=== PATIENT | female | born 1995 | race American Indian/Alaskan Native ===

== ENCOUNTER 2016-11-27 13:10 | Emergency (ER) | payer SELFPAY ==
--- NOTE | 2016-11-27 17:07 | Emergency Department Report ---
- General Chief Complaint: Wound/Laceration Stated Complaint: RT HAND/PINKY FINGER INJURY Time Seen by Provider: 11/27/16 16:49 Source: patient, family Mode of arrival: Ambulatory Limitations: No Limitations - History of Present Illness Initial Comments: Patient here reports that she cut her right small finger on can open her. She says she was trying to open a can and it slipped and her finger got cut. Reporting pain to her right small finger at 8 out of 10. She reports this happened at 12 PM today. No numbness or tingling to fingers. TD vaccine is not up-to-date. -: This afternoon Extremity Location: Right: Hand (right fifth digit) Place: home Patient Tetanus UTD: No Context: accidental Associated Symptoms: pain. denies: loss of feeling/numbness, suspect foreign body present, unable to move injured part, weakness followed by dizziness, nausea/vomiting, fever Treatments Prior to Arrival: bandage - Related Data Previous Rx's Medication Instructions Recorded Last Taken Type Cephalexin [Keflex] 500 mg PO Q8HR #15 cap 11/27/16 Unknown Rx Ibuprofen [Motrin] 600 mg PO Q8H PRN #15 tablet 11/27/16 Unknown Rx Allergies Allergy/AdvReac Type Severity Reaction Status Date / Time No Known Allergies Allergy Unverified 11/27/16 17:08 ED Review of Systems ROS: Stated complaint: RT HAND/PINKY FINGER INJURY Other details as noted in HPI Comment: All other systems reviewed and negative Constitutional: denies: chills, fever Respiratory: no symptoms reported Cardiovascular: denies: chest pain, palpitations, edema, syncope Musculoskeletal: arthralgia. denies: back pain Skin: other (laceration to right small finger) Neurological: denies: headache ED Past Medical Hx - Past Medical History Previous Medical History?: No - Surgical History Past Surgical History?: No - Family History Family history: no significant - Social History Smoking Status: Never Smoker Substance Use Type: None - Medications Home Medications: Home Medications Medication Instructions Recorded Confirmed Last Taken Type Cephalexin [Keflex] 500 mg PO Q8HR #15 cap 11/27/16 Unknown Rx Ibuprofen [Motrin] 600 mg PO Q8H PRN #15 tablet 11/27/16 Unknown Rx ED Physical Exam - General Limitations: No Limitations General appearance: alert, in no apparent distress - Head Head exam: Present: atraumatic, normocephalic, normal inspection - ENT ENT exam: Present: normal exam, normal orophraynx, mucous membranes moist - Neck Neck exam: Present: normal inspection, full ROM. Absent: tenderness, meningismus, lymphadenopathy - Respiratory Respiratory exam: Present: normal lung sounds bilaterally. Absent: respiratory distress - Cardiovascular Cardiovascular Exam: Present: regular rate, normal rhythm, normal heart sounds - Extremities Exam Extremities exam: Present: normal inspection, full ROM, tenderness (right fifth digit.Phalanx), normal capillary refill, other (no neurovascular compromise. No pain with axial thumb movement. No signs of tendon damage. Patient will good color, sensation, movement in temperature to hand and fingers. She is able to move all fingers without any difficulties). Absent: joint swelling - Back Exam Back exam: Present: normal inspection - Neurological Exam Neurological exam: Present: alert, oriented X3, normal gait, reflexes normal. Absent: motor sensory deficit - Psychiatric Psychiatric exam: Present: normal affect, normal mood - Skin Skin exam: Present: warm, dry, normal color, other (laceration to right fifth digit) - Expanded Skin Exam Expanded Distribution of rash: RUE (fifth digit) Description of rash: Present: size (2 cm), tenderness. Absent: erythematous, swelling, discharge ED Course Vital Signs 11/27/16 11/27/16 14:43 17:11 Temperature 98.3 F Pulse Rate 84 97 H Respiratory 20 16 Rate Blood Pressure 112/75 Blood Pressure 112/77 [Left] O2 Sat by Pulse 100 90 Oximetry - Reevaluation(s) Reevaluation #1: 11/27/16 18:02 Patient given Cleocin 600 mg IM and Boostrix IM in the emergency room. No adverse reaction. 11/27/16 20:02 - Laceration /Wound Repair Right Medial Finger Wound Location: upper extremity (right fifth digit) Wound Length (cm): 2 Wound's Depth, Shape: superficial, irregular Wound Explored: clean Irrigated w/ Saline (ccs): 200 Anesthesia: 1% Lidocaine Volume Anesthetic (ccs): 5 Wound Debrided: moderate Wound Repaired With: sutures Suture Size/Type: 5:0 (Ethilon) Number of Sutures: 10 Layer Closure?: No Sterile Dressing Applied?: Yes ED Medical Decision Making - Radiology Data Radiology results: report reviewed X-ray for revealed no foreign body or fracture or dislocation - Medical Decision Making ED course:I Discussed with patient that her x-ray report was negative for fracture, dislocation or foreign body. Procedure note for laceration repair. She given Cleocin 600 mg and Boostrix IM and emergency room without any adverse reaction. Her pain is not at 10 status post lidocaine. Discussed the patient that she needs to return in 7-10 days to have sutures removed. Patient discharged home with prescription for Motrin and Keflex. She voiced understanding of discharge instruction. Critical care attestation.: If time is entered above; I have spent that time in minutes in the direct care of this critically ill patient, excluding procedure time. ED Disposition Clinical Impression: Arthralgia of hand, right Laceration of finger Qualifiers: Encounter type: initial encounter Qualified Code(s): S61.219A - Laceration without foreign body of unspecified finger without damage to nail, initial encounter Disposition: DISCHARGED TO HOME OR SELFCARE Is pt being admited?: No Does the pt Need Aspirin: No Condition: Stable Instructions: Finger Laceration (ED), Suture Care (ED), Arthralgia (ED) Additional Instructions: Please keep affected area clean and dry Please return to emergency department to have stitches removed in 7-10 days. Take medication as prescribed. Prescriptions: Cephalexin [Keflex] 500 mg PO Q8HR #15 cap Ibuprofen [Motrin] 600 mg PO Q8H PRN #15 tablet PRN Reason: Pain Referrals: PRIMARY CARE [Primary Care Provider] - 11/29/16 Forms: Work/School Release Form(ED)
[2016-11-27] MEDS ORDERED: XYLOCAINE 1% MPF 5 mL INFILTRATI ONE (17:10)
[2016-11-27] MEDS ORDERED: BOOSTRIX IM ONE (17:10)
[2016-11-27] MEDS ORDERED: CLEOCIN IM ONE (17:10)
[2016-11-27] MEDS ORDERED: NACL 0.9% IR ONE (17:10)
[2016-11-27 17:12] VITALS: BP 112/77
--- NOTE | 2016-11-27 18:12 | XRay Report ---
FINAL REPORT EXAM: XR FINGER(S) 2 RT HISTORY: lACERATION rt SMALL FINGER TECHNIQUE: Three views of the right 5th finger PRIORS: None. FINDINGS: No fracture is identified. The joint spaces are within normal limits. No focal bony lesion identified. No radiopaque foreign body seen. IMPRESSION: No fracture or radiopaque foreign body
[2016-11-27] MEDS ORDERED: XYLOCAINE 1% MPF 5 mL ONE (19:22)
[2016-11-27] MEDS ORDERED: NACL 0.9% 500 ML IR ONE (19:28)
== END 2016-11-27 20:07 | disposition home or self-care (01) ==
LOC: ED 13:10
DX: S61.216A Laceration without foreign body of right little finger without damage to nail, initial encounter (principal); W22.8XXA Striking against or struck by other objects, initial encounter; Y93.89 Activity, other specified; Y92.89 Other specified places as the place of occurrence of the external cause; Y99.8 Other external cause status
CPT/HCPCS: 90471; 90715; 96372

== ENCOUNTER 2016-12-03 13:59 | Emergency (ER) | payer OTHER ==
--- NOTE | 2016-12-03 18:52 | Emergency Department Report ---
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 ED Review of Systems ROS: Stated complaint: SUTURE REMOVAL ON RIGHT PINKY Other details as noted in HPI Constitutional: denies: chills, fever Eyes: denies: eye pain, eye discharge, vision change ENT: denies: ear pain, throat pain Respiratory: denies: cough, shortness of breath, wheezing Cardiovascular: denies: chest pain, palpitations Endocrine: no symptoms reported Gastrointestinal: denies: abdominal pain, nausea, diarrhea Genitourinary: denies: urgency, dysuria, discharge Musculoskeletal: denies: back pain, joint swelling, arthralgia Skin: denies: rash, lesions Neurological: denies: headache, weakness, paresthesias Psychiatric: denies: anxiety, depression Hematological/Lymphatic: denies: easy bleeding, easy bruising ED Past Medical Hx - Past Medical History Previous Medical History?: No - Surgical History Past Surgical History?: No - Social History Smoking Status: Never Smoker Substance Use Type: None - Medications Home Medications: Home Medications Medication Instructions Recorded Confirmed Last Taken Type Cephalexin [Keflex] 500 mg PO Q8HR #15 cap 11/27/16 Unknown Rx Ibuprofen [Motrin] 600 mg PO Q8H PRN #15 tablet 11/27/16 Unknown Rx Ibuprofen [Motrin] 600 mg PO Q8H PRN #20 tablet 12/03/16 Unknown Rx Neomy/Baci/Polymyx Oint [Triple 15 gm TP BID #1 oint 12/03/16 Unknown Rx Antibiotic] Suture Removal Exam - Exam General: Vital signs noted. No distress. Alert and acting appropriately. Wound: No Pathologic Erythema, No Tenderness, No Drainage, No Pus, No Wound Dehiscence Other Systems: All other systems reviewed and are unremarkable. ED Course Vital Signs 12/03/16 14:33 Temperature 98.3 F Pulse Rate 80 Respiratory 18 Rate Blood Pressure 105/73 O2 Sat by Pulse 100 Oximetry ED Recheck MDM - Differential Diagnosis Suture/Staple Removal - Medical Decision Making A/P: Suture removal 1- 2- 3- 4- 5- Critical care attestation.: If time is entered above; I have spent that time in minutes in the direct care of this critically ill patient, excluding procedure time. Critical Care Time: A/P: Suture removal right pinky finger 1-7 sutures removed with minimal to no difficulty minimal bleeding 2-triple antibiotic ointment to area no signs of infection no wound dehiscence 3-Motrin when necessary for pain 4-triple antibiotic ointment applied, Band-Aid applied to area ED Disposition Clinical Impression: Visit for suture removal Disposition: DISCHARGED TO HOME OR SELFCARE Is pt being admited?: No Does the pt Need Aspirin: No Condition: Stable Instructions: Suture Removal (ED) Prescriptions: Ibuprofen [Motrin] 600 mg PO Q8H PRN #20 tablet PRN Reason: Pain Neomy/Baci/Polymyx Oint [Triple Antibiotic] 15 gm TP BID #1 oint Referrals: PRIMARY CARE, [Primary Care Provider] - 3-5 Days Forms: Accompanied Note, Work/School Release Form(ED) Time of Disposition: 18:53
[2016-12-03] MEDS ORDERED: TRIPLE ANTIBIOTIC TP ONE (19:07)
[2016-12-03] MEDS ORDERED: TYLENOL #3 PO ONE (19:07)
[2016-12-03 19:19] VITALS: BP 109/76
== END 2016-12-03 19:21 | disposition home or self-care (01) ==
LOC: ED 13:59
DX: S61.216D Laceration without foreign body of right little finger without damage to nail, subsequent encounter (principal)
CPT/HCPCS: A6250